=== PATIENT | male | born 1985 | race Native Hawaiian/Other Pacific Islander ===

== ENCOUNTER 2018-06-02 08:45 | Outpatient (CLI) | payer OTHER | END 2018-06-02 08:49 | disposition short-term general hospital (02) | LOC: AMB 08:45 | DX: M79.602 Pain in left arm (principal); M25.562 Pain in left knee; S80.212A Abrasion, left knee, initial encounter; M25.572 Pain in left ankle and joints of left foot; M25.571 Pain in right ankle and joints of right foot; W20.8XXA Other cause of strike by thrown, projected or falling object, initial encounter; Y92.89 Other specified places as the place of occurrence of the external cause | CPT/HCPCS: A0425; A0429 ==

== ENCOUNTER 2018-06-02 08:49 | Emergency (ER) | payer OTHER ==
[~2018-06-02] VITALS: Ht 160 cm; Wt 74.8 kg
[2018-06-02 08:49] VITALS: TEMP 98.2
[2018-06-02 10:59] VITALS: BP 154/83
== END 2018-06-02 11:00 | disposition home or self-care (01) ==
LOC: ED 08:57
DX: S30.0XXA Contusion of lower back and pelvis, initial encounter (principal); S33.5XXA Sprain of ligaments of lumbar spine, initial encounter; W20.8XXA Other cause of strike by thrown, projected or falling object, initial encounter; Y92.89 Other specified places as the place of occurrence of the external cause
CPT/HCPCS: 96372; 99283; J1885

== ENCOUNTER 2018-08-18 08:41 | Outpatient (CLI) | payer OTHER ==
[~2018-08-18] VITALS: Ht 30.5 cm; Wt 0.0 kg
== END 2018-08-18 23:43 | disposition home or self-care (01) ==
LOC: NM 08:41
DX: R07.9 Chest pain, unspecified (principal)
CPT/HCPCS: 93306; A9500; J2785